=== PATIENT | female | born 1945 | race Caucasian/White ===

== ENCOUNTER → 2023-06-16 | Outpatient (CLI) | payer MEDICARE, BC ==
[~2023-06-16] MED LIST: ALBU2.5V5; ALPR.25; AMOCLA875 PO; BUSP5; GUAI600T33 PO; HYDR1TAB94; PRED20 PO; PROLIA60 MG/1 ML; SERT100 PO; TRAM50; TRAZ50 PO; TREXALL PO
== END ==
LOC: LAB SHORT 11:55 → LAB 11:55
DX: L30.8 Other specified dermatitis (principal)
CPT/HCPCS: 88305; 88312

== ENCOUNTER → 2023-08-06 | Outpatient (CLI) | payer MEDICARE, BC | LOC: LAB SHORT 17:33 → LAB 17:33 | DX: N76.4 Abscess of vulva (principal) | CPT/HCPCS: 87070; 87077; 87186; 87205 ==

== ENCOUNTER → 2024-05-27 | Outpatient (CLI) | payer MEDICARE, BC | END | disposition home or self-care (01) | LOC: LAB 16:45 → LAB SHORT 16:45 | DX: N76.0 Acute vaginitis (principal) | CPT/HCPCS: 87070; 87075; 87147; 87205 ==